=== PATIENT | female | born 1995 | race Caucasian/White ===

== ENCOUNTER 2018-04-09 16:51 | Emergency (ER) | payer OTHER ==
[2018-04-09] MEDS ORDERED: Ketorolac 30 MG/ML SDV IM ONE (18:05)
--- NOTE | 2018-04-09 18:12 | EDM.PDOC ---
ED HPI GENERAL MEDICAL PROBLEM - General Chief Complaint: Lower Extremity Injury/Pain Stated Complaint: NEEDS MORE MEDS Time Seen by Provider: 04/09/18 17:19 Source of Information: Reports: Patient, RN Notes Reviewed History Limitations: Reports: No Limitations - History of Present Illness INITIAL COMMENTS - FREE TEXT/NARRATIVE: Patient is a 22 year old female who presents to the ED for the evaluation of pain after an ankle fracture. The patient states that she broke her ankle on . She has been using ibuprofen and tylenol every 6 hours as directed and has used up the Franklin she was prescribed. She states that her pain is at an 8/10 and tylenol/ibuprofen only cuts the pain to 7/10. She states that she has been out of the Franklin for 4 days. She last took tylenol this AM around 7:30. She does have an ortho appointment with Dr. Sandoval on Apr 18. Right Ankle Pain Score (Numeric/FACES): 9 - Related Data Allergies Allergy/AdvReac Type Severity Reaction Status Date / Time No Known Allergies Allergy Verified 04/09/18 17:16 Home Meds: Home Meds Acetaminophen/HYDROcodone [Franklin 325-5 MG] 1 tab PO Q6H PRN #10 tablet 04/01/18 [Rx] Past Medical History - Past Health History Medical/Surgical History: Denies Medical/Surgical History Social & Family History - Family History Family Medical History: Noncontributory - Tobacco Use Smoking Status *Q: Never Smoker - Caffeine Use Caffeine Use: Reports: Coffee Review of Systems - Review of Systems Review Of Systems: See Below Constitutional: Reports: No Symptoms Eyes: Reports: No Symptoms Ears: Reports: No Symptoms Nose: Reports: No Symptoms Mouth/Throat: Reports: No Symptoms Respiratory: Reports: No Symptoms Cardiovascular: Reports: No Symptoms GI/Abdominal: Reports: No Symptoms Genitourinary: Reports: No Symptoms Musculoskeletal: Reports: Joint Pain (right ankle) Skin: Reports: No Symptoms Neurological: Denies: Numbness, Tingling Psychiatric: Reports: No Symptoms ED EXAM, GENERAL - Physical Exam Exam: See Below Free Text/Narrative:: exam limited to right lower extremity. Exam Limited By: No Limitations General Appearance: Alert, WD/WN, No Apparent Distress Respiratory/Chest: No Respiratory Distress, Lungs Clear, Normal Breath Sounds, No Accessory Muscle Use, Chest Non-Tender Cardiovascular: Normal Peripheral Pulses, Regular Rate, Rhythm, No Murmur Extremities: Normal Inspection, Normal Capillary Refill, Other (tender over medial malleolus) Neurological: Alert, Oriented, Normal Cognition, No Motor/Sensory Deficits Psychiatric: Normal Affect, Normal Mood Skin Exam: Warm, Dry, Intact, Normal Color, No Rash Course - Vital Signs Last Recorded V/S: Last Vital Signs Temp 98.3 F 04/09/18 17:13 Pulse 87 04/09/18 17:13 Resp 16 04/09/18 17:13 BP 121/78 04/09/18 17:13 Pulse Ox 99 04/09/18 17:13 - Orders/Labs/Meds Meds: Medications Discontinued Medications Generic Name Dose Route Start Last Admin Trade Name Diamante PRN Reason Stop Dose Admin Ketorolac Tromethamine 30 mg 04/09/18 18:05 04/09/18 18:12 Toradol IM 04/09/18 18:06 30 mg ONETIME ONE Administration - Re-Assessments/Exams Free Text/Narrative Re-Assessment/Exam: 04/09/18 18:15 Pt presents to ED for the evaluation of continuing right ankle pain. She will be given 30 mg IM toradol for pain relief to see if this doesn't help. Will send her home with a script for toradol for a short course, so that she may make her ortho appointment. 04/09/18 18:45 The toradol has helped her pain. Will give her a short course of toradol for home use. Departure - Departure Time of Disposition: 18:47 Disposition: Home, Self-Care 01 Condition: Fair Clinical Impression: Fractured medial malleolus Qualifiers: Encounter type: subsequent encounter Fracture type: closed Fracture alignment: nondisplaced Laterality: right Fracture healing: with routine healing Qualified Code(s): S82.54XD - Nondisplaced fracture of medial malleolus of right tibia, subsequent encounter for closed fracture with routine healing - Discharge Information Instructions: Ankle Fracture, [id number] Referrals: PCP,None [Primary Care Provider] - Forms: ED Department Discharge Additional Instructions: You have been evaluated in the ED for your right ankle fracture pain. You have been provided a prescription for toradol. Please take this every 6hrs as needed for pain not relieved by ibuprofen or tylenol. Please follow all previous initial discharge instructions. Please keep your appointment with ortho on Apr 18. Please return to ED if your symptoms change or worsen.
== END 2018-04-09 18:59 | disposition home or self-care (01) ==
LOC: JD.ED 16:51
DX: S82.54XD Nondisplaced fracture of medial malleolus of right tibia, subsequent encounter for closed fracture with routine healing (principal); X50.0XXD Overexertion from strenuous movement or load, subsequent encounter
CPT/HCPCS: 96372; 99282; J1885; 99283